=== PATIENT | male | born 1980 | race African-American/Black ===

== ENCOUNTER 2019-03-28 02:22 | Emergency (ER) | payer MEDICAID ==
[~2019-03-28] VITALS: Ht 180.3 cm; Wt 64.0 kg
[2019-03-28] MEDS ORDERED: ASPIRIN 81MG TABLET PO ONE (03:15)
[2019-03-28 03:29] LABS: HEMATOCRIT. 46.5 % (42.0-52.0); HEMOGLOBIN. 15.8 g/dL (14.0-18.0); MEAN CORPUSCULAR HEMOGLOBIN 30.8 pg (28.0-32.0); MEAN CORPUSCULAR VOLUME 90.4 fL (80.0-94.0); MEAN PLATELET VOLUME 9.1 fl (7.4-10.4); PLATELET 238 x1000/uL (130-400); RED BLOOD CELL COUNT 5.14 mill/uL (4.7-6.1); RED CELL DISTRIBUTION WIDTH 13.9 % (11.6-14.6)
[2019-03-28 03:32] LABS: CHLORIDE 106 mEq/L (98-107)
[2019-03-28 03:43] LABS: CREATINE KINASE 545 IU/L (39-308)
[2019-03-28 05:14] VITALS: BP 148/93
[2019-03-28 08:52] LABS: PLATELET ESTIMATE NORMAL
== END 2019-03-28 05:31 | disposition home or self-care (01) ==
LOC: ER 02:36
DX: R07.9 Chest pain, unspecified (principal); F15.10 Other stimulant abuse, uncomplicated; F41.9 Anxiety disorder, unspecified; F10.10 Alcohol abuse, uncomplicated; F12.10 Cannabis abuse, uncomplicated; Y90.9 Presence of alcohol in blood, level not specified
CPT/HCPCS: 36415; 71045; 80053; 82550; 83880; 84484; 85025; 93005; 99284; Z7610

== ENCOUNTER 2023-06-16 21:37 | Emergency (ER) | payer OTHER, MEDICAID ==
[~2023-06-16] VITALS: Ht 180.3 cm; Wt 64.0 kg
[2023-06-16 21:43] VITALS: BP 141/99; PULSE 92; RESP 16; O2SAT 100
[2023-06-16] MEDS ORDERED: BACITRACIN ZINC OINT UDPKT TOP ONE (22:00)
[2023-06-16] MEDS ORDERED: LIDOCAINE HCL/PF 1% 10 MG/ML 5ML VIAL INFIL ONE (22:00)
[2023-06-16] MEDS ORDERED: TETANUS, DIPHTHERIA, PERTUSSIS VAC/PF 0.5ML (>10YR OLD) IM ONE (22:00)
[2023-06-17] MEDS ORDERED: BO1 TP (01:26)
[2023-06-17] MEDS ORDERED: IBUP-2028 MT (01:26)
[2023-06-17] MEDS ORDERED: AMOX1TAB16 MT (01:26)
== END 2023-06-17 01:36 | disposition home or self-care (01) ==
LOC: ER 21:37
DX: S01.01XA Laceration without foreign body of scalp, initial encounter (principal); R51.9 Headache, unspecified; F12.10 Cannabis abuse, uncomplicated; Y04.0XXA Assault by unarmed brawl or fight, initial encounter; Y93.89 Activity, other specified; Y92.89 Other specified places as the place of occurrence of the external cause; Y99.8 Other external cause status
CPT/HCPCS: 70450; 90715; 12015; 90471; 99285; J3490; Z7610 ×4

== ENCOUNTER 2023-06-19 15:36 | Emergency (ER) | payer OTHER, MEDICAID ==
[~2023-06-19] VITALS: Ht 180.3 cm; Wt 64.0 kg
[~2023-06-19 15:36] MED LIST: AMOX1TAB16 MT; BO1 TP; IBUP-2028 MT
[2023-06-19 16:04] VITALS: BP 143/92; PULSE 113; RESP 16; TEMP 98.3; O2SAT 97
== END 2023-06-19 16:30 | disposition home or self-care (01) ==
LOC: ER 15:36
DX: Z48.00 Encounter for change or removal of nonsurgical wound dressing (principal)
CPT/HCPCS: 99281

== ENCOUNTER 2023-09-28 17:07 | Emergency (ER) | payer MEDICAID, OTHER | END 2023-09-28 17:27 | disposition left against medical advice (07) | LOC: ER 17:07 | DX: F91.9 Conduct disorder, unspecified (principal); Z53.21 Procedure and treatment not carried out due to patient leaving prior to being seen by health care provider ==

== ENCOUNTER 2023-10-03 18:11 | Emergency (ER) | payer OTHER | END 2023-10-03 23:00 | disposition left against medical advice (07) | LOC: ER 18:11 | DX: F23 Brief psychotic disorder (principal); Z53.21 Procedure and treatment not carried out due to patient leaving prior to being seen by health care provider ==